=== PATIENT | male | born 1990 | race Caucasian/White ===

== ENCOUNTER 2018-01-06 10:14 | Emergency (ER) | payer OTHER ==
[2018-01-06 10:21] VITALS: BMI 24.2
--- NOTE | 2018-01-06 10:30 | PDOC ---
History of Present Illness - General Chief Complaint: Headache Stated Complaint: HEADACHE Time Seen by Provider: 01/06/18 10:30 - History of Present Illness Initial Comments: 01/06/18 10:46 Mr. Mathew Vargas is a 27 yo male w/ no pmh who presents c/o a 2 week history of constant posterior head pain with occasional blurry vision. He recently moved from [facility] approximately 1 1/2 months ago. Mr. Mathew Vargas does not usually get headaches so decided to come in to get checked out. The patient denies chest pain, shortness of breath, headache and dizziness. Denies fever, chills, nausea, vomit, diarrhea and constipation. Denies dysuria, frequency, urgency and hematuria. Allergies: NKDA Past History - Past Medical History Allergies/Adverse Reactions: Allergies Allergy/AdvReac Type Severity Reaction Status Date / Time No Known Allergies Allergy Verified 01/06/18 10:18 Home Medications: Ambulatory Orders NK [No Known Home Medication] 01/06/18 COPD: No - Surgical History Abdominal Surgery: Yes (RT ING.HERNIA) - Suicide/Smoking/Psychosocial Hx Smoking History: Never smoked Information on smoking cessation initiated: No Hx Alcohol Use: No Drug/Substance Use Hx: No Substance Use Type: None Review of Systems - Review of Systems Comments:: 01/06/18 10:48 GENERAL/CONSTITUTIONAL: No fever or chills. No weakness. HEAD, EYES, EARS, NOSE AND THROAT: No change in vision. No ear pain or discharge. No sore throat. CARDIOVASCULAR: No chest pain or shortness of breath RESPIRATORY: No cough, wheezing, or hemoptysis. GASTROINTESTINAL: No nausea, vomiting, diarrhea or constipation. GENITOURINARY: No dysuria, frequency, or change in urination. MUSCULOSKELETAL: No joint or muscle swelling or pain. No neck or back pain. SKIN: No rash NEUROLOGIC: +Headache as described. No vertigo, loss of consciousness, or change in strength/sensation. ENDOCRINE: No increased thirst. No abnormal weight change HEMATOLOGIC/LYMPHATIC: No anemia, easy bleeding, or history of blood clots. ALLERGIC/IMMUNOLOGIC: No hives or skin allergy. *Physical Exam - Vital Signs Last Vital Signs Temp Pulse Resp BP Pulse Ox 98.6 F 57 L 18 111/55 100 01/06/18 10:19 01/06/18 10:19 01/06/18 10:19 01/06/18 10:19 01/06/18 10:19 - Physical Exam Comments: 01/06/18 10:48 GENERAL: Awake, alert, and fully oriented, in no acute distress HEAD: No signs of trauma, normocephalic, atraumatic EYES: PERRLA, EOMI, sclera anicteric, conjunctiva clear ENT: Auricles normal inspection, hearing grossly normal, nares patent, oropharynx clear without exudates. Moist mucosa NECK: Normal ROM, supple, no lymphadenopathy, JVD, or masses LUNGS: No distress, speaks full sentences, clear to auscultation bilaterally HEART: Regular rate and rhythm, normal S1 and S2, no murmurs, rubs or gallops, peripheral pulses normal and equal bilaterally. ABDOMEN: Soft, nontender, normoactive bowel sounds. No guarding, no rebound. No masses EXTREMITIES: Normal inspection, Normal range of motion, no edema. No clubbing or cyanosis. NEUROLOGICAL: Cranial nerves II through XII grossly intact. Normal speech, normal gait, no focal sensorimotor deficits SKIN: Warm, Dry, normal turgor, no rashes or lesions noted. ED Treatment Course - LABORATORY CBC & Chemistry Diagram: 01/06/18 11:10 01/06/18 11:10 Medical Decision Making - Medical Decision Making 01/06/18 12:22 Mr. Mathew Vargas is a 27 yo male who presents for evaluation of headache as described. Labs grossly unconcerning as below. Patient reporting generalized relief from symptoms with reglan and fluids. Discharging to home. Laboratory Results - last 24 hr 01/06/18 01/06/18 11:10 11:10 WBC 7.9 RBC 4.41 Hgb 14.0 Hct 40.5 MCV 91.8 MCH 31.8 MCHC 34.6 RDW 13.0 Plt Count 224 MPV 8.6 Absolute Neuts (auto) 4.0 Neutrophils % 50.5 Lymphocytes % 41.2 H Monocytes % 6.3 Eosinophils % 1.8 Basophils % 0.2 Nucleated RBC % 0 Sodium 140 Potassium 4.1 Chloride 105 Carbon Dioxide 29 Anion Gap 6 L BUN 15 Creatinine 0.7 Creat Clearance w eGFR > 60 Random Glucose 87 Calcium 9.2 Total Bilirubin 0.4 AST 14 L ALT 21 Alkaline Phosphatase 71 Total Protein 7.0 Albumin 4.1 *DC/Admit/Observation/Transfer Diagnosis at time of Disposition: Headache Qualifiers: Headache type: unspecified Headache chronicity pattern: unspecified pattern Intractability: not intractable Qualified Code(s): R51 - Headache - Discharge Dispostion Disposition: HOME - Referrals Referrals: Garret Cabral MD [Staff Physician] - Jose Manuel Fernando MD [Primary Care Provider] - [facility] [place] [place] [Provider Group] - Patient Instructions Printed Discharge Instructions: DI for Headache Additional Instructions: Please follow-up with primary care provider at information provided for further evaluation. Return to ER if any increase in pain, fever, chills, altered mental status, or other concerning symptoms. Print Language: FRENCH - Post Discharge Activity
--- NOTE | 2018-01-06 10:48 | PDOC ---
Attending Attestation - Resident Resident Name: Chris Perez - ED Attending Attestation I have performed the following: I have examined & evaluated the patient, The case was reviewed & discussed with the resident, I agree w/resident's findings & plan, Exceptions are as noted - HPI HPI: 01/06/18 10:55 27y M no known pmhx presents with 2 weeks of gradual onset in nature, constant, posterior head burning/tingling. The patient endorses occasional blurry vision. Pt denies any n/v, numbness/tingling/weakness, neck pain, back pain, recent trauma, cp, sob, palpitations, fever/chills. on exam the pt is well appearing in no distress no rashes noted unremarkble neuro exam neck supple will give tylenol ?tension headache vs neuropathic pain
[2018-01-06] MEDS ORDERED: METOCLOPRAMIDE HCL INJECTION 10 MG/2 ML VIAL IVPB ONE (10:57)
[2018-01-06] MEDS ORDERED: SODIUM CHLORIDE 1,000 ML IV STA (10:57)
[2018-01-06] MEDS ORDERED: METOCLOPRAMIDE HCL INJECTION 10 MG/2 ML VIAL ONE (11:06)
[2018-01-06 11:25] LABS: BASO % 0.2 % (0-2.0); EOS % 1.8 % (0-4.5); HEMATOCRIT 40.5 % (35.4-49); LYMPH % 41.2 % (8-40); MCH 31.8 pg (25.7-33.7); MCHC 34.6 g/dl (32.0-35.9); MEAN CELL VOLUME 91.8 fl (80-96); MEAN PLT VOLUME 8.6 fl (7.5-11.1); MONO % 6.3 % (3.8-10.2); NEUT % 50.5 % (42.8-82.8); PLATELET COUNT 224 K/MM3 (134-434); RBC 4.41 M/mm3 (4.00-5.60); WHITE BLOOD COUNT 7.9 K/mm3 (4.0-10.0)
[2018-01-06 12:05] LABS: ALBUMIN 4.1 g/dl (3.4-5.0); ANION GAP 6 (8-16); BLOOD UREA NITROGEN 15 mg/dL (7-18); CALCIUM 9.2 mg/dL (8.5-10.1); CHLORIDE 105 mmol/L (98-107); CO2 29 mmol/L (21-32); CREATININE 0.7 mg/dL (0.7-1.3); GLUCOSE,RANDOM 87 mg/dL (74-106); POTASSIUM 4.1 mmol/L (3.5-5.1); SGOT/AST 14 U/L (15-37); SGPT/ALT 21 U/L (12-78); SODIUM 140 mmol/L (136-145)
[2018-01-06 12:07] LABS: ALK PHOS 71 U/L (45-117); BILIRUBIN,TOTAL 0.4 mg/dL (0.2-1.0)
[2018-01-06 12:46] VITALS: BP 108/73; PULSE 73; TEMP 98
== END 2018-01-06 12:40 | disposition home or self-care (01) ==
LOC: JER 10:14
PROC: 3E033GC Introduction of Other Therapeutic Substance into Peripheral Vein, Percutaneous Approach (ICD-10-PCS; principal; 2018-01-06)
DX: R51 Headache (principal)
CPT/HCPCS: 36415; 80053; 85025; 99283-25; J7030

== ENCOUNTER 2018-06-27 20:58 | Emergency (ER) | payer SELFPAY ==
[2018-06-27 21:03] VITALS: BMI 25.8
[2018-06-27] MEDS ORDERED: ONDANSETRON 4 MG TABLET PO ONE (23:49)
[2018-06-27] MEDS ORDERED: ACETAMINOPHEN 325 MG TABLET (FP) PO ONE (23:49)
--- NOTE | 2018-06-27 23:57 | PDOC ---
History of Present Illness - History of Present Illness Initial Comments: 06/28/18 00:04 The patient is a 27 year old male, with no significant past medical history, who presents to the emergency department s/p injury with headache, dizziness, and nausea without emesis. As per patient, a steel beam fell on his head yesterday at work prior to the onset of his symptoms. He describes his headache as a diffuse, tension-like headache. He denies any loss of consciousness or change of strength/sensation to the extremities. He denies any recent fevers or chills. He denies any recent vomit, diarrhea or constipation. He denies any recent chest pain or shortness of breath. He denies any recent dysuria, frequency, urgency or hematuria. Allergies: NKDA Social History: Nonsmoker. Denies EtOH use and recreational drug use. <Christiano Mcdaniels - Last Filed: 06/28/18 00:04> - General History Source: Patient Exam Limitations: No Limitations <Brooks Robledo - Last Filed: 06/28/18 02:11> - General Chief Complaint: Head/Neck problem Stated Complaint: Headache Time Seen by Provider: 06/27/18 23:44 Past History <Christiano Mcdaniels - Last Filed: 06/28/18 00:04> - Past Medical History COPD: No - Surgical History Abdominal Surgery: Yes (RT ING.HERNIA) - Suicide/Smoking/Psychosocial Hx Smoking History: Never smoked Hx Alcohol Use: No Drug/Substance Use Hx: No Substance Use Type: None <Brooks Robledo - Last Filed: 06/28/18 02:11> - Past Medical History Allergies/Adverse Reactions: Allergies Allergy/AdvReac Type Severity Reaction Status Date / Time No Known Allergies Allergy Verified 06/27/18 21:03 Home Medications: Ambulatory Orders Naproxen 500 mg PO BID PRN #20 tablet 06/28/18 Ondansetron HCl [Zofran] 4 mg PO Q8H PRN #15 tablet 06/28/18 Review of Systems - Review of Systems Able to Perform ROS?: Yes Comments:: 06/28/18 00:05 GENERAL/CONSTITUTIONAL: No fever or chills. No weakness. HEAD, EYES, EARS, NOSE AND THROAT: No change in vision. No ear pain or discharge. No sore throat. CARDIOVASCULAR: No chest pain or shortness of breath. RESPIRATORY: No cough, wheezing, or hemoptysis. +GASTROINTESTINAL: Nausea. No vomiting, diarrhea or constipation. GENITOURINARY: No dysuria, frequency, or change in urination. MUSCULOSKELETAL: No joint or muscle swelling or pain. No neck or back pain. SKIN: No rash +NEUROLOGIC: Headache. Dizziness.No loss of consciousness, or change in strength /sensation. ENDOCRINE: No increased thirst. No abnormal weight change. HEMATOLOGIC/LYMPHATIC: No anemia, easy bleeding, or history of blood clots. ALLERGIC/IMMUNOLOGIC: No hives or skin allergy. All Other Systems: Reviewed and Negative <Christiano Mcdaniels - Last Filed: 06/28/18 00:04> *Physical Exam - Vital Signs Last Vital Signs Temp Pulse Resp BP Pulse Ox 98.0 F 60 18 117/60 99 06/27/18 21:01 06/27/18 21:01 06/27/18 21:01 06/27/18 21:01 06/27/18 21:01 - Physical Exam Comments: 06/28/18 00:05 GENERAL: Awake, alert, and fully oriented, in no acute distress HEAD: No signs of trauma EYES: PERRLA, EOMI, sclera anicteric, conjunctiva clear ENT: Auricles normal inspection, hearing grossly normal, nares patent, oropharynx clear without exudates. Moist mucosa NECK: Normal ROM, supple, no lymphadenopathy, JVD, or masses LUNGS: Breath sounds equal, clear to auscultation bilaterally. No wheezes, and no crackles HEART: Regular rate and rhythm, normal S1 and S2, no murmurs, rubs or gallops ABDOMEN: Soft, nontender, normoactive bowel sounds. No guarding, no rebound. No masses EXTREMITIES: Normal range of motion, no edema. No clubbing or cyanosis. No cords, erythema, or tenderness NEUROLOGICAL: Alert, awake, appropriate. Cranial nerves 2-12 intact. No deficits to light touch and temperature in face, upper extremities and lower extremities. No motor deficits in the in face, upper extremities and lower extremities. No pronator drift. Normoreflexic in the upper and lower extremities. Normal speech. Toes are down-going bilaterally. Gait is normal without ataxia. SKIN: Warm, Dry, normal turgor, no rashes or lesions noted. <Christiano Mcdaniels - Last Filed: 06/28/18 00:04> - Vital Signs Last Vital Signs Temp Pulse Resp BP Pulse Ox 98.0 F 60 18 117/60 99 06/27/18 21:01 06/27/18 21:01 06/27/18 21:01 06/27/18 21:01 06/27/18 21:01 <Brooks Robledo - Last Filed: 06/28/18 02:11> ED Treatment Course - RADIOLOGY Radiology Studies Ordered: Category Date Time Status HEAD CT WITHOUT CONTRAST [CT] Stat CT Scan 06/27/18 23:49 Ordered <Brooks Robledo - Last Filed: 06/28/18 02:11> Medical Decision Making - Medical Decision Making 06/27/18 23:55 A portion of this note was documented by scribe services under my direction. I have reviewed the details of the note, within reason, and agree with the documentation with the following case summary and management plan written by me. Patient treated in the ED. Nursing notes are reviewed and incorporated into the medical decision-making. Vital signs reviewed. Vital Signs Temp Pulse Resp BP Pulse Ox 98.0 F 60 18 117/60 99 06/27/18 21:01 06/27/18 21:01 06/27/18 21:01 06/27/18 21:01 06/27/18 21:01 27-year-old male with no past medical history presents with headache injury. The patient reported that he was hit by a steel beam on his head yesterday. Denies any loss consciousness but reports a global tension-like headache that is in moderate severity. Reports some nausea and dizziness. But denies any vomiting. Patient is not taking anticoagulants. Denies any neuro deficits. Came to the ER for an evaluation. I suspect patient likely had a concussion. We'll obtain head CT rule out intrarenal hemorrhage or bony injury. We'll give Tylenol and Zofran. If the workup is negative, the patient can be discharged home with ortive care and follow-up neurology as an outpatient. 06/28/18 01:56 CT head reviewed. No acute findings. I discussed the physical exam findings, ancillary test results and final diagnoses with the patient. I answered all of the patient's questions. The patient was satisfied with the care received and felt comfortable with the discharge plan and treatment plan. The patient will call their primary care physician within 24 hours to arrange follow-up and will return to the Emergency Department with any new, persistant or worsening symptoms. <Brooks Robledo - Last Filed: 06/28/18 02:11> *DC/Admit/Observation/Transfer - Attestations Scribe Attestion: 06/28/18 00:05 Documentation prepared by Christiano Mcdaniels, acting as manager medical device for Brooks Robledo MD. <Christiano Mcdaniels - Last Filed: 06/28/18 00:04> <Brooks Robledo - Last Filed: 06/28/18 02:11> Diagnosis at time of Disposition: Concussion Qualifiers: Encounter type: initial encounter Loss of consciousness presence/duration: without LOC Qualified Code(s): S06.0X0A - Concussion without loss of consciousness, initial encounter - Discharge Dispostion Disposition: HOME - Prescriptions Prescriptions: Naproxen 500 mg PO BID PRN #20 tablet PRN Reason: Pain Ondansetron HCl [Zofran] 4 mg PO Q8H PRN #15 tablet PRN Reason: Nausea - Referrals Referrals: Mark Ocasio MD [Staff Physician] - - Patient Instructions Printed Discharge Instructions: DI for Concussion Additional Instructions: It may take several days to several weeks before your symptoms resolve. If you feel like you're having a headache, please take 500 mg naproxen every 12 hours as needed for headache. For nausea, you may take 4 mg zofran every 8 hours. If you symptoms do not resolve in 2 weeks, please make an appointment with a neurologist. Call to schedule an appointment. Please do not over exercise. It is important that you rest as you heal. Print Language: UPPER SORBIAN
[2018-06-28] MEDS ORDERED: ACETAMINOPHEN 325 MG TABLET (FP) ONE (00:09)
[2018-06-28] MEDS ORDERED: ONDANSETRON 4 MG/2 ML VIAL ONE (00:09)
[2018-06-28 03:39] VITALS: BP 103/66; PULSE 51; TEMP 97.6
== END 2018-06-28 03:45 | disposition home or self-care (01) ==
LOC: JER 20:58
DX: S06.0X0A Concussion without loss of consciousness, initial encounter (principal); W20.8XXA Other cause of strike by thrown, projected or falling object, initial encounter; Y93.89 Activity, other specified; Y92.69 Other specified industrial and construction area as the place of occurrence of the external cause; Y99.0 Civilian activity done for income or pay
CPT/HCPCS: 70450-TC; 99281-25

== ENCOUNTER 2021-01-06 01:32 | Emergency (ER) | payer OTHER ==
[2021-01-06 01:44] VITALS: BMI 25.0
[2021-01-06] MEDS ORDERED: KETOROLAC TROMETHAMINE 15 MG/ML VIAL IVPUSH ONE (02:06)
[2021-01-06] MEDS ORDERED: morphine CARPU-JECT 2 MG/1 ML DISP.SYRIN IVPUSH ONE (02:07)
[2021-01-06] MEDS ORDERED: SODIUM CHLORIDE 0.9% 500 ML INFUS.BAG IV ONE (02:07)
[2021-01-06] MEDS ORDERED: KETOROLAC TROMETHAMINE 15 MG/ML VIAL ONE (02:09)
[2021-01-06] MEDS ORDERED: MORPHINE SULFATE 2 MG/ML VIAL ONE (02:09)
[2021-01-06 02:20] LABS: BASO % 0.4 % (0-2.0); EOS % 2.1 % (0-4.5); HEMATOCRIT 41.9 % (35.4-49); HEMOGLOBIN 14.5 GM/dL (11.7-16.9); LYMPH % 49.8 % (8-40); MCH 31.4 pg (25.7-33.7); MCHC 34.6 g/dl (32.0-35.9); MEAN CELL VOLUME 90.7 fl (80-96); MEAN PLT VOLUME 8.6 fl (7.5-11.1); MONO % 6.4 % (3.8-10.2); NEUT % 41.3 % (42.8-82.8); PLATELET COUNT 191 K/MM3 (134-434); RBC 4.61 M/mm3 (4.00-5.60); RDW 13.7 % (11.9-15.9); WHITE BLOOD COUNT 7.6 K/mm3 (4.0-10.0)
[2021-01-06 02:39] LABS: ALBUMIN 4.1 g/dl (3.4-5.0); BLOOD UREA NITROGEN 17.5 mg/dL (7-18); CALCIUM 9.2 mg/dL (8.5-10.1)
[2021-01-06 02:44] LABS: BILIRUBIN,TOTAL 0.5 mg/dL (0.2-1); TOT PROT 7.4 g/dl (6.4-8.2)
[2021-01-06 03:40] LABS: EPI CELLS 4 /uL (0-25.1); HYALINE CASTS 1 /uL (0-3.1); PH,URINE 5.5 (5.0-8.0); URINE APPEARANCE CLEAR; URINE BACTERIA 10 /uL (0-1359); URINE BILIRUBIN NEGATIVE (NEGATIVE); URINE COLOR YELLOW; URINE GLUCOSE (UA) NEGATIVE (NEGATIVE); URINE KETONE NEGATIVE (NEGATIVE); URINE LEUK ESTERASE NEGATIVE (NEGATIVE); URINE NITRITE NEGATIVE (NEGATIVE); URINE PROTEIN NEGATIVE (NEGATIVE); URINE RBC 154 /uL (0-23.9); URINE UROBILINOGEN 0.2 mg/dL (0.2-1.0); URINE WBC 9 /uL (0-25.8)
[2021-01-06 04:06] VITALS: BP 128/82; PULSE 76; TEMP 97.1
== END 2021-01-06 04:02 | disposition home or self-care (01) ==
LOC: JER 01:32
PROC: 3E0333Z Introduction of Anti-inflammatory into Peripheral Vein, Percutaneous Approach (ICD-10-PCS; principal; 2021-01-06)
PROC: 3E033NZ Introduction of Analgesics, Hypnotics, Sedatives into Peripheral Vein, Percutaneous Approach (ICD-10-PCS; 2021-01-06)
DX: N20.0 Calculus of kidney (principal)
CPT/HCPCS: 36415; 74176-TC; 80053; 81003; 83690; 85025; 87086; 99284-25

== ENCOUNTER 2023-06-18 09:52 | Emergency (ER) | payer OTHER ==
[2023-06-18 09:57] VITALS: BP 130/87; PULSE 58; RESP 18; TEMP 98; BMI 23.6
[2023-06-18] MEDS ORDERED: KETOROLAC TROMETHAMINE 30 MG/1 ML VIAL IM ONE (11:35)
[2023-06-18] MEDS ORDERED: DEXAMETHASONE SOD PHOSPHATE 10 MG/1 ML VIAL IM ONE (11:36)
[2023-06-18] MEDS ORDERED: ACETAMINOPHEN 500 MG TABLET (FP) PO ONE (11:36)
[2023-06-18] MEDS ORDERED: KETOROLAC TROMETHAMINE 30 MG/1 ML VIAL ONE (11:45)
[2023-06-18] MEDS ORDERED: DEXAMETHASONE SOD PHOSPHATE 10 MG/1 ML VIAL ONE (11:45)
[2023-06-18] MEDS ORDERED: ACETAMINOPHEN 500 MG TABLET (FP) ONE (11:45)
== END 2023-06-18 13:36 | disposition home or self-care (01) ==
LOC: JERFT 09:52
PROC: 3E0233Z Introduction of Anti-inflammatory into Muscle, Percutaneous Approach (ICD-10-PCS; principal; 2023-06-18)
PROC: 3E023GC Introduction of Other Therapeutic Substance into Muscle, Percutaneous Approach (ICD-10-PCS; 2023-06-18)
DX: M54.50 Low back pain, unspecified (principal)
CPT/HCPCS: 72100-TC-FY; 99284-25; J1100